=== PATIENT | female | born 1965 | race Caucasian/White ===

== ENCOUNTER 2019-03-17 12:01 | Day surgery (SDC) ==
[2019-03-17] MEDS ORDERED: REGLAN ONE (12:38)
[2019-03-17] MEDS ORDERED: PEPCID ONE (12:38)
[2019-03-17] MEDS ORDERED: CLINDAMYCIN 900 MG/D5W 900 MG/50 ML IVPB ONE (12:38)
[2019-03-17] MEDS ORDERED: LR 1,000 ML ONE ×2 (12:38→17:46)
[2019-03-17] MEDS ORDERED: XYLOCAINE-MPF 2% ONE ×2 (14:20→15:53)
[2019-03-17] MEDS ORDERED: QUELICIN (DOSE) ONE ×2 (14:20→15:53)
[2019-03-17] MEDS ORDERED: DIPRIVAN 1% ONE ×2 (14:21→14:58)
[2019-03-17] MEDS ORDERED: SENSORCAINE 0.25%/EPI 1:200,000 ONE ×2 (15:05→15:49)
[2019-03-17] MEDS ORDERED: DECADRON ONE (15:53)
[2019-03-17] MEDS ORDERED: ZOFRAN ONE (15:53)
[2019-03-17] MEDS: DILAUDID ONE ×2 (17:19→17:26)
[2019-03-17] MEDS ORDERED: PHENERGAN ONE (17:46)
[2019-03-17] MEDS ORDERED: MORPHINE IV PRN (18:14)
[2019-03-17] MEDS ORDERED: LR 1,000 ML IV SCH (18:14)
[2019-03-17] MEDS ORDERED: ZOFRAN IV PRN (18:14)
[2019-03-17] MEDS ORDERED: NORCO-7.5 PO PRN (18:14)
[2019-03-17] MEDS ORDERED: PERIDEX MT SCH (21:00)
--- NOTE | 2019-03-17 21:06 | OPERATIVE NOTE ---
PROCEDURE DATE: 03/17/2019 PREOPERATIVE DIAGNOSIS: Symptomatic left thyroid nodule. POSTOPERATIVE DIAGNOSIS: Symptomatic left thyroid nodule. PROCEDURE: Left thyroid lobectomy. ESTIMATED BLOOD LOSS: 10 mL. SPECIMEN: Left thyroid lobe. ANESTHESIA: General. EMERGENCY ROOM PHYSICIAN: Dr. Rushing was present, provided exposure, identification of abnormal anatomy distorted by left thyroid mass. FINDINGS: Well-circumscribed thyroid mass extending from the inferior pole to the isthmus. OPERATIVE NOTE: Risks, benefits, and alternatives were discussed with the patient, and she consented to the procedure. She was seen preoperatively and surgical site was confirmed. She was taken to the operating room, placed in supine position. General anesthesia was induced without complication. All bony prominences were padded and general anesthesia induced. Her neck was extended, and her bilateral neck chest prepped with Betadine and draped in usual fashion. She was placed in reverse Trendelenburg position. After time-out, we made a transverse incision 2 fingerbreadths below the level of the clavicle in a natural skin crease, carried this down through the platysma, and created subplatysmal flaps. We then divided the strap muscle along the midline. Identifying the left thyroid lobe nodule, we carried our dissection lateral to the carotid artery and encircled the superior pole, divided with LigaSure device. We then continued our dissection inferiorly. The thyroid nodule was obscuring the inferior pole, but we were able to identify this and encircle it, protecting the recurrent laryngeal nerve that was identified in the usual location. There were 2 parathyroids that were dissected down. The inferior gland was slightly dusky, but it was intact. The superior gland was normal. We then divided the thyroid at the isthmus, right lateral to the nodule itself to ensure complete removal, and then completed removing the thyroid from the trachea. This was done protecting the trachea. Hemostasis was noted. We performed Valsalva maneuver, placed Katharine in the wound bed. Reapproximated strap muscles with 3-0 Vicryl. Platysma was closed with 3-0 Vicryl and the skin was closed with 4-0 Monocryl. Dermabond was applied. She was awoken and transferred to Recovery. I spoke to the family. cc: Boris Herrera MD
[2019-03-18 07:21] VITALS: BP 93/54
== END 2019-03-18 08:53 | disposition home or self-care (01) ==
LOC: 4N 12:01 → OPS 12:01 → PAT 12:01 → OPS 03-18 08:53
PROVIDERS: ATTEND Surgery